=== PATIENT | male | born 1980 | race Caucasian/White ===

== ENCOUNTER 2018-04-17 22:30 | Emergency (ER) | payer SELFPAY ==
[~2018-04-17] VITALS: Ht 177.8 cm; Wt 134.3 kg
[2018-04-17 22:57] VITALS: Ht 177.8 cm; Wt 134.3 kg
[2018-04-18 02:45] VITALS: BP 136/95
== END 2018-04-18 02:45 | disposition home or self-care (01) ==
LOC: ED 22:30
DX: S40.011A Contusion of right shoulder, initial encounter (principal); M54.16 Radiculopathy, lumbar region; Z88.0 Allergy status to penicillin; V43.52XA Car driver injured in collision with other type car in traffic accident, initial encounter; Y93.I9 Activity, other involving external motion; Y92.89 Other specified places as the place of occurrence of the external cause; Y99.8 Other external cause status
CPT/HCPCS: J1100; J1885